=== PATIENT | female | born 1945 | race Caucasian/White ===

== ENCOUNTER 2020-11-09 21:22 | Inpatient (IN) | payer MEDICARE ==
[2020-11-09 21:58] VITALS: TEMP 100.7
[2020-11-09] MEDS ORDERED: Morphine 4 MG/ML VIAL SLOW IVP PRN (22:06)
[2020-11-09] MEDS ORDERED: Lorazepam 2 MG/ML VIAL SLOW IVP PRN (22:07)
[2020-11-09] MEDS ORDERED: Bisacodyl 10 MG SUPP PR PRN (22:08)
[2020-11-09] MEDS ORDERED: diphenhydrAMINE 50 MG/ML VIAL IVP PRN (22:09)
[2020-11-09] MEDS ORDERED: Acetaminophen 650 MG Suppository PR PRN (22:09)
[2020-11-09] MEDS ORDERED: Ondansetron PF 4 MG/2 ML Vial IVP PRN (22:10)
[2020-11-09] MEDS ORDERED: Haloperidol Lactate 5 MG/ML VIAL SLOW IVP PRN (22:11)
[2020-11-09] MEDS ORDERED: Morphine 4 MG/ML VIAL SLOW IVP SCH (22:15)
[2020-11-09] MEDS ORDERED: Lorazepam 2 MG/ML VIAL SLOW IVP SCH (22:15)
[2020-11-09 22:44] VITALS: BMI 28.7
== END 2020-11-10 00:17 | disposition expired | DRG 951 ==
LOC: CSHTELE 21:22
PROVIDERS: ADMIT Student in an Organized Health Care Education/Training Program; ATTEND Student in an Organized Health Care Education/Training Program
PROC: 8E0ZXY6 Isolation (ICD-10-PCS; principal; 2020-11-09)
DX: Z51.5 Encounter for palliative care (principal); U07.1 COVID-19; J12.82 Pneumonia due to coronavirus disease 2019; J96.01 Acute respiratory failure with hypoxia; I10 Essential (primary) hypertension; Z88.5 Allergy status to narcotic agent; Z86.718 Personal history of other venous thrombosis and embolism; Z79.01 Long term (current) use of anticoagulants; Z90.710 Acquired absence of both cervix and uterus; Z87.891 Personal history of nicotine dependence; Z82.49 Family history of ischemic heart disease and other diseases of the circulatory system; Z79.82 Long term (current) use of aspirin; Z79.899 Other long term (current) drug therapy; Z66 Do not resuscitate
CPT/HCPCS: J2060; J2270